=== PATIENT | female | born 1995 | race Caucasian/White ===

== ENCOUNTER 2020-02-12 13:28 | Emergency (ER) | payer MEDICAID ==
[~2020-02-12] VITALS: Ht 157.5 cm; Wt 79.4 kg
[2020-02-12 13:38] VITALS: BP 112/73
--- NOTE | 2020-02-12 13:45 | NUR ---
DR. BARRAGAN AT BEDSIDE EVALUATING PT
--- NOTE | 2020-02-12 13:45 | NUR ---
PT C/O AWOKE WITH EPIGASTRIC BURNING PAIN AND N/V TODAY. UNABLE TO TOLERATE ANY PO'S. PT ALSO C/O AWOKE WITH MANY BUG BITES. DENIES DIARRHEA OR CONSTIPATION. SKIN IS PINK/WARM/DRY WITH MULTIPLE ERYTHEMATOUS BIG BITE LUMPS ON LEFT ARM AND LEFT LEG; AAOX4 WITH EVEN AND STEADY GAIT; LUNGS CLEAR BL; HR EVEN AND REGULAR; PT DENIES ANY FEVER, CP, SOB, OR COUGH AT THIS TIME; PATIENT STATES PAIN OF 8/10 AT THIS TIME; VSS; PATIENT POSITIONED FOR COMFORT; HOB ELEVATED; BEDRAILS UP X1; BED DOWN. ER MD MADE AWARE OF PT STATUS.
[2020-02-12 14:08] LABS: BASOPHILS % (AUTO) 0.2 % (0.0-2.0); EOSINOPHILS # (AUTO) 0.1 K/uL (0-0.4); EOSINOPHILS % (AUTO) 0.7 % (0.0-4.0); HEMOGLOBIN 13.3 g/dL (12.0-16.0); LYMPHOCYTES % (AUTO) 18.5 % (20.5-51.1); MEAN CORPUSCULAR HEMOGLOBIN 28 pg (27-31); MEAN CORPUSCULAR HGB CONC 33 g/dL (33-37); MEAN CORPUSCULAR VOLUME 84.5 fL (80-94); MONOCYTES # (AUTO) 0.5 K/uL (0.8-1.0); MONOCYTES % (AUTO) 4.6 % (1.7-9.3); NEUTROPHILS # (AUTO) 8.2 K/uL (1.8-7.7); PLATELET COUNT (AUTO) 240 K/uL (140-450); RED BLOOD CELL COUNT(AUTO) 4.85 MIL/uL (4.20-5.40); RED CELL DISTRIBUTION WIDTH 15.4 % (11.6-13.7); WHITE BLOOD COUNT (AUTO) 10.8 K/uL (4.8-10.8)
[2020-02-12 14:35] LABS: ANION GAP 15.5 (8-16); CARBON DIOXIDE 24.1 mmol/L (21-32); CREATININE 0.7 mg/dL (0.6-1.3); POTASSIUM 3.6 mmol/L (3.5-5.1)
[2020-02-12 14:53] LABS: APPEARANCE,URINE CLEAR (CLEAR); BILIRUBIN,URINE NEGATIVE (NEGATIVE); BLOOD, URINE NEGATIVE (NEGATIVE); COLOR,URINE YELLOW (YELLOW); LEUKOCYTE ESTERASE ,URINE NEGATIVE (NEGATIVE); NITRITE, URINE NEGATIVE (NEGATIVE); PH,URINE 5.5 (5.0-9.0); UGLUCOSE NEGATIVE (NEGATIVE)
[2020-02-12 15:56] VITALS: BP 112/73
--- NOTE | 2020-02-12 16:09 | NUR ---
Patient discharged with v/s stable. Written and verbal after care instructions given and explained. Patient alert, oriented and verbalized understanding of instructions. Ambulatory with steady gait. All questions addressed prior to discharge. ID band removed. Patient advised to follow up with PMD. Rx of PEPCID, DOXYCYCLINE, AND ZOFRAN given. Patient educated on indication of medication including possible reaction and side effects. Opportunity to ask questions provided and answered.
== END 2020-02-12 16:09 | disposition home or self-care (01) ==
LOC: MED 13:28
DX: R10.13 Epigastric pain (principal); R11.2 Nausea with vomiting, unspecified
CPT/HCPCS: 36415; 76705; 80053; 81003; 81025; 83690; 85025; 99284; Q0092

== ENCOUNTER 2021-11-29 07:52 | Emergency (ER) | payer MEDICAID ==
[~2021-11-29] VITALS: Ht 157.5 cm; Wt 87.1 kg
[2021-11-29 07:56] VITALS: BP 114/75
--- NOTE | 2021-11-29 08:01 | NUR ---
AMBULATED TO BED 3
--- NOTE | 2021-11-29 09:13 | NUR ---
26 y/o female states she has pain, burning, frequent urge to urinate. patient did notice some blood in her urine and states that she has right flank pain radiating down to her lower abdomen/suprapubic region. pain started 3 days ago, no otc rx taken
[2021-11-29 09:17] LABS: APPEARANCE,URINE CLOUDY (CLEAR); BILIRUBIN,URINE NEGATIVE (NEGATIVE); BLOOD, URINE 2+ (NEGATIVE); COLOR,URINE AMBER (YELLOW); LEUKOCYTE ESTERASE ,URINE 3+ (NEGATIVE); NITRITE, URINE NEGATIVE (NEGATIVE); UGLUCOSE NEGATIVE (NEGATIVE)
[2021-11-29 09:31] LABS: YEAST,URINE None Seen /HPF (None Seen)
[2021-11-29 09:32] LABS: CALCIUM OXALATE CRYSTALS,UR None Seen /HPF (None Seen); TRICHOMONAS,URINE None Seen /HPF (None Seen)
[2021-11-29 09:33] LABS: COARSE GRANULAR CASTS,URINE None Seen /LPF (None Seen); FINE GRANULAR CASTS,URINE None Seen /LPF (None Seen); HYALINE CASTS, URINE None Seen /LPF (None Seen); OTHER CRYSTALS,URINE None Seen /HPF (None Seen); RED BLOOD CELL CASTS,URINE None Seen /LPF (None Seen); TRIPLE PHOSPHATE CRYSTAL,UR None Seen /HPF (None Seen); URIC ACID CRYSTALS,URINE None Seen /HPF (None Seen); URINE AMORPHOUS URATE None Seen /HPF (None Seen); WAXY CASTS,URINE None Seen /LPF (None Seen)
[2021-11-29 09:37] LABS: OTHER CASTS, URINE None Seen /LPF (None Seen)
[2021-11-29] MEDS ORDERED: cefTRIAXone 1,000 MG in LIDOCAINE MPF 1% 2.1 ML IM ONE (09:40)
[2021-11-29] MEDS ORDERED: CEPH-588 PO (09:42)
[2021-11-29] MEDS ORDERED: LIDOCAINE MPF 1% 5 ML ONE (10:02)
[2021-11-29] MEDS ORDERED: cefTRIAXone 1,000 MG VIAL ONE (10:02)
[2021-11-29 10:34] VITALS: BP 114/75
== END 2021-11-29 10:34 | disposition home or self-care (01) ==
LOC: MED 07:52
DX: N12 Tubulo-interstitial nephritis, not specified as acute or chronic (principal)
CPT/HCPCS: 81001; 81025; 87086; 96372; 99283; J0696; J2001

== ENCOUNTER 2022-05-09 07:45 | Emergency (ER) | payer MEDICAID ==
[~2022-05-09] VITALS: Ht 157.5 cm; Wt 89.8 kg
[~2022-05-09 07:45] MED LIST: CEPH-588 PO
[2022-05-09 07:51] VITALS: BP 107/50
--- NOTE | 2022-05-09 07:55 | NUR ---
AMBULATED TO BED 8
--- NOTE | 2022-05-09 08:42 | NUR ---
MD VALDES AT BEDSIDE FOR EVALUATION
[2022-05-09] MEDS ORDERED: KETOROLAC 30 MG/ML VIAL IVP ONE (08:50)
[2022-05-09] MEDS ORDERED: NACL 0.9% 1,000 ML IV SCH (08:50)
[2022-05-09] MEDS ORDERED: ONDANSETRON 4 MG/2 ML VIAL IVP ONE (08:55)
--- NOTE | 2022-05-09 09:10 | NUR ---
26YO FEMALE PT C/O PRESSURED 9/10 LOWER ABDOMINAL PAIN xTHISMORNING. STATES RADIATION TO LL BACK AND L PELVIC. STATES MILD NAUSEA, DENIES V/D, CHEST PAIN , SOB OR TAKING MEDICATION FOR PAIN. ABDOMEN NON TENDER OR DISTENDED. PT AAOX4, NO VISIBLE DISTRESS, RESPIRATIONS EVEN AND UNLABORED. HOB POSITIONED PER COMFORT HX:DENIES NKA
[2022-05-09 09:22] LABS: BASOPHILS % (AUTO) 0.2 % (0.0-2.0); EOSINOPHILS # (AUTO) 0.1 K/uL (0-0.4); EOSINOPHILS % (AUTO) 1.4 % (0.0-4.0); HEMATOCRIT 37.2 % (36-48); HEMOGLOBIN 12.5 g/dL (12.0-16.0); LYMPHOCYTES # (AUTO) 2.2 K/uL (2.5-16.5); LYMPHOCYTES % (AUTO) 37.7 % (20.5-51.1); MEAN CORPUSCULAR HEMOGLOBIN 28 pg (27-31); MEAN CORPUSCULAR HGB CONC 34 g/dL (33-37); MEAN CORPUSCULAR VOLUME 82.1 fL (80-94); MONOCYTES # (AUTO) 0.3 K/uL (0.8-1.0); MONOCYTES % (AUTO) 5.2 % (1.7-9.3); NEUTROPHILS # (AUTO) 3.2 K/uL (1.8-7.7); NEUTROPHILS % (AUTO) 55.5 % (42.2-75.2); PLATELET COUNT (AUTO) 260 K/uL (140-450); RED BLOOD CELL COUNT(AUTO) 4.53 MIL/uL (4.20-5.40); RED CELL DISTRIBUTION WIDTH 14.6 % (11.6-13.7); WHITE BLOOD COUNT (AUTO) 5.8 K/uL (4.8-10.8)
--- NOTE | 2022-05-09 09:22 | NUR ---
PT TAKEN TO CT VIA ADA
[2022-05-09 09:28] LABS: APPEARANCE,URINE CLEAR (CLEAR); BILIRUBIN,URINE NEGATIVE (NEGATIVE); BLOOD, URINE NEGATIVE (NEGATIVE); COLOR,URINE YELLOW (YELLOW); LEUKOCYTE ESTERASE ,URINE 1+ (NEGATIVE); NITRITE, URINE NEGATIVE (NEGATIVE); UGLUCOSE NEGATIVE (NEGATIVE)
[2022-05-09 09:41] LABS: ALBUMIN 3.1 g/dL (3.4-5.0); ANION GAP 14.4 (8-16); CARBON DIOXIDE 23.3 mmol/L (21-32); CREATININE 0.8 mg/dL (0.6-1.3); POTASSIUM 3.7 mmol/L (3.5-5.1); TOTAL BILIRUBIN 0.4 mg/dL (0.0-1.0)
[2022-05-09 09:41] LABS: OTHER CASTS, URINE None Seen /LPF (None Seen); RBC,URINE 0-5 /HPF (0-5)
--- NOTE | 2022-05-09 11:36 | NUR ---
US AT BEDSIDE
[2022-05-09] MEDS ORDERED: IBUP-2213 PO (12:50)
--- NOTE | 2022-05-09 13:05 | NUR ---
IV removed, catheter intact and site benign. Applied folded 4x4 gauze and tape to stop bleeding.
[2022-05-09 13:08] VITALS: BP 117/65
--- NOTE | 2022-05-09 13:08 | NUR ---
Patient discharged with v/s stable. Written and verbal after care instructions FOR [facility] given and explained. Patient alert, oriented and verbalized understanding of instructions. Ambulatory with steady gait. All questions addressed prior to discharge. ID band removed. Patient advised to follow up with PMD. Rx of MOTRIN given. Opportunity to ask questions provided and answered.
--- NOTE | 2022-05-09 13:41 | NUR ---
The patient's care was reviewed and supervised by Mary Grace Mcwilliams, RN, RN.
== END 2022-05-09 13:08 | disposition home or self-care (01) ==
LOC: MED 07:45
DX: N83.202 Unspecified ovarian cyst, left side (principal)
CPT/HCPCS: 36415; 74176; 76856; 80053; 81001; 81025; 83690; 85025; 87086; 93976; 96361; 96374; 96375; 99285; J1885; J2405; J7030; Q0092

== ENCOUNTER 2023-11-29 08:08 | Emergency (ER) | payer MEDICAID, OTHER ==
[~2023-11-29] VITALS: Ht 157.5 cm; Wt 87.1 kg
[~2023-11-29 08:08] MED LIST changes: +IBUP-2213 PO
[2023-11-29 08:11] VITALS: BP 98/65; PULSE 70; RESP 18; TEMP 97.1; O2SAT 99
[2023-11-29] MEDS ORDERED: FLONAS NS (08:37)
[2023-11-29] MEDS ORDERED: NAPR-1704 PO (08:37)
[2023-11-29] MEDS ORDERED: AMOX500C25 PO (08:37)
[2023-11-29] MEDS ORDERED: SODI1PKT7 NS (08:37)
[2023-11-29] MEDS ORDERED: LORA1T1237 PO (08:37)
== END 2023-11-29 08:45 | disposition home or self-care (01) ==
LOC: MED 08:08
DX: J32.9 Chronic sinusitis, unspecified (principal); T78.40XA Allergy, unspecified, initial encounter; Z79.1 Long term (current) use of non-steroidal anti-inflammatories (NSAID); Z79.2 Long term (current) use of antibiotics; Z79.899 Other long term (current) drug therapy; X58.XXXA Exposure to other specified factors, initial encounter
CPT/HCPCS: 99283